=== PATIENT | female | born 1965 | race Caucasian/White ===

== ENCOUNTER 2016-10-06 20:08 | Inpatient (IN) | payer OTHER ==
[~2016-10-06] VITALS: Ht 170.2 cm; Wt 99.8 kg
[~2016-10-06 20:08] MED LIST: ESTRADIOL2 M1 PO; GEMFIBROZIL600 M1; PEPCID; WATER PILL?; [UNRECOGNIZED DRUG - OTHER]; [UNRECOGNIZED DRUG - REMARK]
[2016-10-06 20:25] VITALS: BP 126/74
--- NOTE | 2016-10-06 21:13 | NUR ---
PT TAKEN TO BED 4
--- NOTE | 2016-10-06 21:13 | NUR ---
PATIENT PRESENTS TO ED WITH AB PAIN X 4 HOURS AGO RADIATES TO THE BACK PT DENIES ANY FALL.; SKIN IS PINK/WARM/DRY; AAOX4 WITH EVEN AND STEADY GAIT; LUNGS CLEAR BL; HR EVEN AND REGULAR; PT DENIES ANY FEVER, CP, SOB, OR COUGH AT THIS TIME; PATIENT STATES PAIN OF 10/10 AT THIS TIME; VSS; PATIENT POSITIONED FOR COMFORT; HOB ELEVATED; BEDRAILS UP X2; BED DOWN. ER MD MADE AWARE OF PT STATUS.
[2016-10-06] MEDS ORDERED: NACL 0.9% 1,000 ML IV ONE (21:46)
[2016-10-06] MEDS ORDERED: MORPHINE SULFATE 4 MG/ML SYR IVP ONE (21:50)
[2016-10-06] MEDS ORDERED: ONDANSETRON 4 MG/2 ML VIAL IVP ONE (21:50)
[2016-10-07] MEDS ORDERED: KETOROLAC 30 MG/ML VIAL IVP ONE
[2016-10-07] MEDS ORDERED: MORPHINE SULFATE 4 MG/ML SYR IVP ONE
[2016-10-07] MEDS ORDERED: CYMBALTA60 MG PO (00:14)
[2016-10-07] MEDS ORDERED: DESYREL50 MG PO (00:14)
[2016-10-07] MEDS ORDERED: BIAXIN500 MG PO (00:14)
--- NOTE | 2016-10-07 00:46 | NUR ---
Pt report given to YOSEPH LOWE . Transfer of care at this time.
--- NOTE | 2016-10-07 00:46 | NUR ---
Patient will be admitted to care of DR RAYA. Admited to MS 119B. Will go to room 119B . Belongings list completed. Report to YOSEPH LOWE .
--- NOTE | 2016-10-07 01:10 | NUR ---
PATIENT ARRIVED TO UNIT VIA WHEELCHAIR. PATIENT WAS ABLE TO AMBULATE TO BED, STEADY GAIT, ON ROOM AIR, NO SOB OR SIGN OF DISTRESS AT THIS TIME. AAOX4, DENIES PAIN, PATIENT SKIN IS INTACT, IV TO RIGHT HAND PATENT AND INTACT. ORIENTED PATIENT TO ROOM AND CALL LIGHT, SAFETY MEASURES CHECKED, CALL LIGHT WITHIN REACH. WILL CONTINUE TO MONITOR
[2016-10-07 01:15] VITALS: BP 113/66
--- NOTE | 2016-10-07 03:00 | NUR ---
PATIENT RESTING IN BED, NO SOB OR SIGN OF DISTRESS, CALL LIGHT WITHIN REACH. WILL CONTINUE TO MONITOR.
[2016-10-07] MEDS ORDERED: MORPHINE SULFATE 2 MG/ML SYR IVP PRN (03:25)
--- NOTE | 2016-10-07 03:30 | NUR ---
PATIENT C/O ABDOMINAL PAIN 10/03, PAGED DR RAYA, SPOKE WITH ZARI RAYA RECEIVED ORDERS FOR PAIN MEDS NORCO 5/325 TABLET PO PRN Q4 HOURS FOR MODERATE PAIN AND MORPHINE 2 MG IV PRN Q4 FOR SEVERE PAIN. WILL F/U WITH ORDERS.
[2016-10-07] MEDS ORDERED: LORazepam 2 MG/ML VIAL IVP PRN (03:35)
[2016-10-07] MEDS ORDERED: ACETAMINOPHEN 325 MG TAB PO PRN (03:35)
[2016-10-07] MEDS ORDERED: ONDANSETRON 4 MG/2 ML VIAL IVP PRN (03:35)
[2016-10-07] MEDS: HYDROcodone/APAP 5/325 MG 1 TAB TAB PO PRN ×2 (04:20→21:23)
[2016-10-07] MEDS: DEXT 5% /NACL 0.9% 1,000 ML IV SCH ×3 (04:22→23:55)
--- NOTE | 2016-10-07 06:00 | NUR ---
PATIENT SLEEPING, NO SOB OR SIGN OF DISTRESS AT THIS TIME, CALL LIGHT WITHIN REACH. WILL CONTINUE TO MONITOR.
--- NOTE | 2016-10-07 07:14 | NUR ---
RECEIVED PT AWAKE AND LYING ON BED WITH NO S/S OF RESPIRATORY DISTRESS OR DISCOMFORT, AAOX4, ABLE TO AMBULATE FROM BED TO RESTROOM. WITH IV ACCESS ON RIGHT HAND 22G INFUSING FLUIDS WELL. SKIN IS INTACT. NO COMPLAINTS OF PAIN AT THIS TIME. DISCUSSED PLAN OF CARE, PT VERBALIZED UNDERSTANDING. CALL LIGHT WITHIN REACH, WILL CONTINUE TO MONITOR.
--- NOTE | 2016-10-07 07:41 | NUR ---
ENDORSED PATIENT TO DAY RN AT BEDSIDE, PATIENT IN STABLE CONDITION
--- NOTE | 2016-10-07 07:59 | NUR ---
PATIENT HAS BEEN SCREENED AND CATEGORIZED MODERATE NUTRITION RISK. PATIENT WILL BE SEEN WITHIN 3-5 DAYS OF ADMISSION. 10/09/16-10/11/[address]
[2016-10-07 08:00] VITALS: BP 92/57
[2016-10-07] MEDS: GEMFIBROZIL 600 MG TAB PO SCH ×2 (08:23→21:23)
[2016-10-07] MEDS: CLARITHROMYCIN 500 MG TAB PO SCH ×2 (08:24→21:24)
[2016-10-07] MEDS: DULoxetine 30 MG CAPDR PO SCH (08:24)
--- NOTE | 2016-10-07 08:29 | NUR ---
DUE MEDS GIVEN, PT TOLERATED WELL. PT COMPLAINED OF NAUSEA, ZOFRAN GIVEN ORDERED. WILL CONTINUE TO MONITOR.
--- NOTE | 2016-10-07 10:08 | NUR ---
DR RAYA AND RELATIVES AT BEDSIDE
--- NOTE | 2016-10-07 10:34 | NUR ---
CM NOTE PER POWER LINE LINEMAN AGUSTINA EXT [phone], REVIEWS SHOULD BE SENT TO [facility]. INITIAL REVIEW SENT TO [facility] FAX# [phone] PH# [phone] ATTN: FRANCIE SUAREZ PH# [phone]
--- NOTE | 2016-10-07 12:57 | NUR ---
PT ASLEEP ON BED NO S/S OF RESPIRATORY DISTRESS. PT COMPLAINS OF HEADACHE, COLD COMPRESS APPLIED. ALL NEEDS ATTENDED. CALL LIGHT WITHIN REACH, WILL CONTINUE TO MONITOR
--- NOTE | 2016-10-07 14:42 | NUR ---
PT WATCHING TV, COMPLAINED OF HEADACHE, TYLENOL GIVEN ORDERED. WILL CONTINUE TO MONITOR.
[2016-10-07 16:00] VITALS: BP 95/62
--- NOTE | 2016-10-07 16:09 | NUR ---
NOTIFIED DR. PETERS RE: CONSULT, WILL DROP BY TODAY TO SEE PT. WILL CARRY OUT NEW ORDERS
--- NOTE | 2016-10-07 17:29 | NUR ---
DR PETERS AT NURSES' STATION
--- NOTE | 2016-10-07 18:29 | NUR ---
NOTIFIED DR. GRIJALVA RE: CONSULT, WILL SEE PT TOMORROW
--- NOTE | 2016-10-07 19:28 | NUR ---
ENDORSED PT TO CHRISSY HAMEED IN STABLE CONDITION FOR CONTINUITY OF CARE.
--- NOTE | 2016-10-07 19:30 | NUR ---
RECEIVED REPORT FROM DAY RN AT BEDSIDE, PATIENT RESTING IN BED, AAOX4 ON ROOM AIR, NO SOB OR SIGN OF DISTRESS AT THIS TIME, PATIENT HAS IV TO RIGHT HAND PATENT AND INTACT WITH IVF INFUSING WELL. PATIENT C/O HEADACHE, WILL ADMINISTER MEDICATION PER MD ORDER. SKIN IS INTACT, SAFETY MEASURES CHECKED, DISCUSSED PLAN OF CARE WITH PATIENT, PATIENT VERBALIZED UNDERSTANDING, CALL LIGHT WITHIN REACH. WILL CONTINUE TO MONITOR.
[2016-10-07] MEDS ORDERED: ESTRADIOL2 M1 PO SCH (21:00)
[2016-10-07] MEDS: traZODone 50 MG TAB PO SCH (21:23)
[2016-10-07] MEDS: ESTRADIOL 1 MG TAB PO SCH (21:23)
--- NOTE | 2016-10-07 21:29 | NUR ---
PM MEDS ADMINISTERED, PATIENT TOLERATED WELL, CALL LIGHT WITHIN REACH. WILL CONTINUE TO MONITOR
[2016-10-08] VITALS: BP 99/68
--- NOTE | 2016-10-08 00:15 | NUR ---
VITAL SIGNS STABLE, NO SOB OR SIGN OF DISTRESS, PATIENT SLEEPING, CALL LIGHT WITHIN REACH. WILL CONTINUE TO MONITOR.
--- NOTE | 2016-10-08 02:05 | NUR ---
PATIENT SLEEPING COMFORTABLE, NO SOB OR SIGN OF DISTRESS AT THIS TIME, CALL LIGHT WITHIN REACH WILL CONTINUE TO MONITOR.
--- NOTE | 2016-10-08 03:30 | NUR ---
PATIENT SLEEPING, NO SOB OR SIGN OF DISTRESS AT THIS TIME, CALL LIGHT WITHIN REACH. WILL CONTINUE TO MONITOR.
--- NOTE | 2016-10-08 05:00 | NUR ---
PATIENT SLEEPING, EASILY AWOKEN, PATIENT SIGNED CONSENT FOR ANESTHESIA, PATIENT AWARE OF TIME FOR SURGERY, CALL LIGHT WITHIN REACH. WILL CONTINUE TO MONITOR.
--- NOTE | 2016-10-08 07:23 | NUR ---
ENDORSED PATIENT TO DAY RN AT BEDSIDE, PATIENT IN STABLE CONDITION
--- NOTE | 2016-10-08 07:23 | NUR ---
RECEIVED REPORT FROM NIGHT NURSE. PT IS AAOX4, ON ROOM AIR IV TO RIGHT HAND 22G INFUSING WELL. SKIN INTACT. INITIAL ASSESSMENT COMPLETED. REVIEWED PLAN OF CARE WITH PT. PT VERBALIZED UNDERSTANDING. ALL SAFETY PRECAUTIONS MET. ALL NEEDS MET. CALL LIGHT WITHIN REACH. WILL CONTINUE TO MONITOR.
[2016-10-08 08:00] VITALS: BP 105/78
[2016-10-08] MEDS: BUPIVACAINE-MPF/EPI 0.25% 30 ML VIAL INJ ONE ×2 (08:11→12:15)
[2016-10-08] MEDS ORDERED: ceFAZolin 1,000 MG VIAL ONE (08:11)
--- NOTE | 2016-10-08 08:20 | NUR ---
PT LEFT UNIT TO OR IN STABLE CONDITION.
[2016-10-08] MEDS ORDERED: KETOROLAC 30 MG/ML VIAL ONE (08:58)
[2016-10-08] MEDS ORDERED: GLYCOPYRROLATE 0.2 MG/ML VIAL ONE (08:58)
[2016-10-08] MEDS ORDERED: ROCURONIUM 50 MG/5 ML VIAL IV ONE (08:58)
[2016-10-08] MEDS ORDERED: PROPOFOL 200 MG/20 ML VIAL IV ONE (08:58)
[2016-10-08] MEDS ORDERED: DEXAMETHASONE 4 MG/ML VIAL ONE (08:58)
[2016-10-08] MEDS ORDERED: ONDANSETRON 4 MG/2 ML VIAL ONE (08:58)
[2016-10-08] MEDS ORDERED: PHENYLEPHRINE 10 MG/ML VIAL ONE (08:58)
[2016-10-08] MEDS ORDERED: DESFLURANE 240 ML BTL INH ONE (08:58)
[2016-10-08] MEDS: GEMFIBROZIL 600 MG TAB PO SCH ×2 (09:00→21:32)
[2016-10-08] MEDS: DULoxetine 30 MG CAPDR PO SCH (09:00)
[2016-10-08] MEDS: CLARITHROMYCIN 500 MG TAB PO SCH ×2 (09:00→21:00)
[2016-10-08] MEDS ORDERED: fentaNYL 0.05 MG/ML VIAL ONE (09:04)
[2016-10-08] MEDS ORDERED: HYDROmorphone PFS 2 MG/ML SYR ONE (09:04)
[2016-10-08] MEDS ORDERED: HYDROmorphone 1 MG/ML AMP IVP PRN (09:30)
[2016-10-08] MEDS ORDERED: ONDANSETRON 4 MG/2 ML VIAL IVP PRN (09:30)
[2016-10-08] MEDS: HYDROmorphone PFS 2 MG/ML SYR ONE ×5 (12:20→12:50)
[2016-10-08] MEDS: MORPHINE SULFATE 4 MG/ML SYR ONE ×3 (12:58→13:08)
[2016-10-08] MEDS ORDERED: MORPHINE SULFATE 2 MG/ML SYR IVP PRN (13:10)
--- NOTE | 2016-10-08 13:30 | NUR ---
PT RETUNED FROM OR. ABD DRESSING DRY AND INTACT. WILI DRAIN TO RIGHT ABD. VS: TEMP 96.9, BP 111/58, HR 71, PULSE OX 94 % ON O2 2L VIA NC. ALL NEEDS MET. CALL LIGHT WITHIN REACH. WILL CONTINUE TO MONITOR.
--- NOTE | 2016-10-08 13:45 | NUR ---
VS: TEMP 97.1, BP 111/58, HR 65, PULSE OX 95 % ON O2 2L VIA NC.
--- NOTE | 2016-10-08 14:00 | NUR ---
VS: 97.7, BP 120/70, HR 81, PULSE OX 93 ON O2 2L VIA NC. ALL NEEDS MET. AT BEDSIDE.
--- NOTE | 2016-10-08 14:15 | NUR ---
VS: TEMP 97.4, BP 117/62, HR 66, PULSE OX 96% ON O2 2L VIA NC.. WILL CONTINUE TO MONITOR.
--- NOTE | 2016-10-08 14:45 | NUR ---
VS: TEMP 97.9, BP 95/57, HR 67, PULSE OX 97 ON O2 2L VIA NC. ALL NEEDS MET. CALL LIGHT WITHIN REACH.
--- NOTE | 2016-10-08 15:15 | NUR ---
VS: TEMP 97.3, BP 116/67, HR 69, PULSE OX 95% ON ROOM AIR. ALL NEEDS MET. CALL LIGHT WITHIN REACH. WILL CONTINUE TO MONITOR.
[2016-10-08] MEDS: DEXT 5% /NACL 0.9% 1,000 ML IV SCH ×2 (15:45→19:35)
--- NOTE | 2016-10-08 15:50 | NUR ---
PT CURRENTLY RESTING IN BED. AT BEDSIDE. ALL NEEDS MET. CALL LIGHT WITHIN REACH. WILL CONTINUE TO MONITOR.
[2016-10-08 16:00] VITALS: BP 123/71
[2016-10-08] MEDS: MORPHINE SULFATE 4 MG/ML SYR IVP PRN (17:43)
--- NOTE | 2016-10-08 18:10 | NUR ---
PT CURRENTLY IN BED, FAMILY AT BEDSIDE.ALL NEEDS MET. CALL LIGHT WITHIN REACH. WILL CONTINUE TO MONITOR.
--- NOTE | 2016-10-08 19:34 | NUR ---
ENDORSED PLAN OF CARE TO NIGHT NURSE, PT IN STABLE CONDITION.
--- NOTE | 2016-10-08 19:35 | NUR ---
RECEIVED REPORT FROM MORNING SHIFT NURSE, PT IS AAOX4, ABLE TO FOLLOW COMMANDS AND MAKE NEEDS KNOW. NO SOB/DISTRESS NOTED, BREATHING EVEN AND UNLABORED, CLEAR LUNG SOUNDS, ON RA. DENIES CHEST PAIN. SURGICAL WOUND TO ABD, WILI DRAIN WITH DARK RED DRAINAGE, COVERED WITH DRESSING, OOZING NOTED AROUND THE WILI DRAIN. C/O SEVERE PAIN TO ABD AREA, 10/10, EDUCATED AND WILL MEDICATED. AFEBRILE, SKIN IS WARM AND DRY TO TOUCH, IV SITE TO LEFT HAND 22GA, RUNNING D5 NS. AMBULATORY WITH ASSIST, SCD'S ON BLE. VSS. EXPLAINED PLANE OF CARE TO PATIENT, SAFETY MEASURES MAINTAINED. CALL LIGHT WITHIN REACH, WILL CONTINUE TO MONITOR.
--- NOTE | 2016-10-08 21:00 | NUR ---
SCHEDULED MEDICATION GIVEN, PT TOLERATED WELL. C/O SEVERE PAIN TO ABD WOUND SITE, EDUCATED AND MEDICATED.
[2016-10-08] MEDS: ESTRADIOL 1 MG TAB PO SCH (21:31)
[2016-10-08] MEDS: traZODone 50 MG TAB PO SCH (21:31)
[2016-10-08] MEDS: MORPHINE SULFATE 2 MG/ML SYR IVP PRN (21:32)
[2016-10-09] VITALS: BP 138/81
--- NOTE | 2016-10-09 | NUR ---
PT IS ASLEEP IN BED, NO CHANGE OF CONDITION AT THIS TIME. VSS.
[2016-10-09] MEDS: MORPHINE SULFATE 4 MG/ML SYR IVP PRN ×2 (01:57→14:33)
[2016-10-09] MEDS: DEXT 5% /NACL 0.9% 1,000 ML IV SCH ×3 (01:57→23:13)
--- NOTE | 2016-10-09 02:00 | NUR ---
PT C/O PAIN TO ABD WOUND SITE, RESTLESSNESS, EDUCATED AND MEDICATED.
--- NOTE | 2016-10-09 06:00 | NUR ---
EMPTIED WILI DRAIN WITH 30ML RED BLOODY OUTPUT.
--- NOTE | 2016-10-09 07:05 | NUR ---
REPORT GIVEN TO MORNING SHIFT NURSE AT BEDSIDE FOR CONTINUE OF CARE.
--- NOTE | 2016-10-09 07:05 | NUR ---
RECEIVED REPORT FROM NIGHT NURSE. PT IS AAOX4, ON ROOM AIR IV TO LEFT FA 22G INFUSING WELL. S/P OPEN SHABNAM WITH ABD DRESSING DRY AND INTACT WITH WILI DRAIN. INITIAL ASSESSMENT COMPLETED. REVIEWED PLAN OF CARE WITH PT. PT VERBALIZED UNDERSTANDING. ALL SAFETY PRECAUTIONS MET. ALL NEEDS MET. CALL LIGHT WITHIN REACH. WILL CONTINUE TO MONITOR.
[2016-10-09 08:00] VITALS: BP 115/65
[2016-10-09] MEDS: GEMFIBROZIL 600 MG TAB PO SCH ×2 (09:06→20:26)
[2016-10-09] MEDS: DULoxetine 30 MG CAPDR PO SCH (09:07)
[2016-10-09] MEDS: CLARITHROMYCIN 500 MG TAB PO SCH ×2 (09:07→20:26)
--- NOTE | 2016-10-09 09:09 | NUR ---
DUE MEDICATIONS GIVEN. PT TOLERATED WELL. ALL NEEDS MET. CALL LIGHT WITHIN REACH. WILL CONTINUE TO MONITOR.
--- NOTE | 2016-10-09 11:14 | NUR ---
PT CURRENTLY RESTING IN BED. AT BEDSIDE. ALL NEEDS MET. CALL LIGHT WITHIN REACH. WILL CONTINUE TO MONITOR.
--- NOTE | 2016-10-09 13:45 | NUR ---
PT CURRENTLY RESTING IN BED. ASSISTED PT TO BEDPAN, ALL NEEDS MET. CALL LIGHT WITHIN REACH. WILL CONTINUE TO MONITOR.
[2016-10-09 15:56] VITALS: BP 133/71
--- NOTE | 2016-10-09 16:05 | NUR ---
NO S/S OF DISTRESS NOTED. ALL NEEDS MET. CALL LIGHT WITHIN REACH.
--- NOTE | 2016-10-09 19:20 | NUR ---
ENDORSED PLAN OF CARE TO NIGHT NURSE, PT IN STABLE CONDITION.
--- NOTE | 2016-10-09 19:21 | NUR ---
RECEIVED REPORT FROM DAY SHIFT NURSE. PT IS AAOX4, RESTING, DENIES PAIN AT THIS TIME. ON ROOM AIR, WITH NO S/S OF RESPIRATORY DISTRESS/DISCOMFORT NOTED. IV SITE IS PATENT AND INTACT. PLAN OF CARE DISCUSSED, VERBALIZED UNDERSTANDING. SAFETY MEASURES CHECKED, CALL LIGHT WITHIN REACH. WILL CONTINUE TO MONITOR.
[2016-10-09] MEDS: traZODone 50 MG TAB PO SCH (20:27)
[2016-10-09] MEDS: ESTRADIOL 1 MG TAB PO SCH (20:27)
--- NOTE | 2016-10-09 20:28 | NUR ---
DUE MEDS GIVEN. PROVIDED DRUG INFO. BENEFITS AND S/E. PT TOLERATED WELL.
--- NOTE | 2016-10-09 20:29 | NUR ---
DR. MONTANO AT BEDSIDE.
[2016-10-10] VITALS: BP 133/69
--- NOTE | 2016-10-10 | NUR ---
EYES CLOSED, APPEARS TO BE RESTING QUIETLY, BREATHING EVEN AND UNLABORED, EASILY AROUSABLE BY NAME. V/S CHECKED AND STABLE. CALL LIGHT WITHIN REACH.
--- NOTE | 2016-10-10 01:59 | NUR ---
EYES CLOSED, APPEARS TO BE RESTING QUIETLY, BREATHING EVEN AND UNLABORED, NO SOB. CALL LIGHT WITHIN REACH.
--- NOTE | 2016-10-10 04:58 | NUR ---
EYES CLOSED, APPEARS TO BE RESTING QUIETLY, NO SIGNS OF DISTRESS. NO SOB, NO S/S OF RESPIRATORY DISTRESS/DISCOMFORT NOTED. CALL LIGHT WITHIN REACH.
--- NOTE | 2016-10-10 07:22 | NUR ---
ENDORSED PT TO DAY SHIFT NURSE FOR CONTINUITY OF CARE. PT IS IN STABLE CONDITION.
--- NOTE | 2016-10-10 07:23 | NUR ---
ALERT AND ORIENTED X4, NO SIGNS OF ACUTE DISTRESS, BREATHING EVENLY AND UNLABORED ON ROOM AIR, SKIN WARM, DRY WITH ABDOMINAL INCISION COVERED WITH DRESSING FROM LAP SHABNAM 10/09/16, WILI DRAIN IN PLACE, ABDOMEN SOFT, BOWEL SOUNDS PRESENT IN ALL 4 QUADRANTS, BOWEL AND BLADDER CONTINENCE, AMBULATORY WITH STANDBY ASSIST, PATIENT COMPLAINT OF PAIN 04/04, WILL MEDICATE AND RE-ASSESS. IV LEFT FOREARM PATENT WITH NO REDNESS, BED IN LOW POSITION WITH BILATERAL HALF SIDE RAILS UP, CALL LIGHT WITHIN REACH.
[2016-10-10 08:00] VITALS: BP 132/76
[2016-10-10] MEDS: MORPHINE SULFATE 2 MG/ML SYR IVP PRN (08:28)
[2016-10-10] MEDS: GEMFIBROZIL 600 MG TAB PO SCH (08:33)
[2016-10-10] MEDS: DULoxetine 30 MG CAPDR PO SCH (08:34)
[2016-10-10] MEDS: CLARITHROMYCIN 500 MG TAB PO SCH (08:34)
[2016-10-10] MEDS: DEXT 5% /NACL 0.9% 1,000 ML IV SCH ×2 (10:08→11:35)
--- NOTE | 2016-10-10 15:30 | NUR ---
PT ALERT AND RESPONSIVE, NO SIGNS OF ACUTE DISTRESS. ENDORSED TO ASSIGNED AM NURSE FOR CONTINUITY OF CARE.
[2016-10-10 16:00] VITALS: BP 121/78
[2016-10-10] MEDS ORDERED: POTASSIUM CHLORIDE 10 MEQ TABER PO SCH (16:45)
--- NOTE | 2016-10-10 17:30 | NUR ---
DR. PETERS CAME, SEEN PT., AND REMOVED WILI DRAIN. DR. PETERS ORDERED TO COVERED WILI SITE WITH 4X4 DRY DRESSING. TOLERATED WELL. NO C/O PAIN. NO SOB, NOTED.
--- NOTE | 2016-10-10 18:30 | NUR ---
ZARI MORALES CAME. SEEN PT. AND CHECKED PT. CHART.
[2016-10-10] MEDS ORDERED: LEVAQUIN750 MG PO (19:09)
[2016-10-10] MEDS ORDERED: ACETAMINOPHEN-H1 TA3 PO (19:09)
[2016-10-10] MEDS ORDERED: FLAGYL250 MG PO (19:09)
--- NOTE | 2016-10-10 19:40 | NUR ---
ENDORSED TO MERCEDES CENTENO IN STABLE CONDITION.
--- NOTE | 2016-10-10 19:45 | NUR ---
RECEIVED PT FROM FOZIA SMITH PT IS AAOX4 AMBULATORY S/P LAP SHABNAM. ALL DISCHARGE ORDER ALREADY COMPLETE BY FOZIA Marcelino ALREADY TOOK A PICTURE AND DC INSTRUCTION ALREADY GIVEN AN SIGNED PAPER WORK RELATIVE AT BED SIDE , IV SITE REMOVED . DENIES ANY PAIN OR DISCOMFORT AT THIS TIME
--- NOTE | 2016-10-10 20:20 | NUR ---
PT IS GOING HOME [employer] PROF[employer] TAKE PT VIA WHEELCHAIR TO THE [employer] PARKING LOT AND PT RELATIVE IS WAITING FOR PT IN A PRIVATE VEHICLE. VSS PT SEEM STABLE AND VERBALIZED TO BE HAPPY TO COME BACK HOME NOW.
--- NOTE | 2016-10-11 08:40 | NUR ---
FAXED RETRO REVIEW, DISCHARGE SUMMARY AND OPERATIVE REPORT TO [phone] PHONE HARJIT [phone]
== END 2016-10-10 20:20 | disposition home or self-care (01) | DRG 853 ==
LOC: MED 20:08 → MTU 10-07 00:45
PROVIDERS: ADMIT Internal Medicine Cardiovascular Disease; ATTEND Internal Medicine Cardiovascular Disease
PROC: 0FJ44ZZ Inspection of Gallbladder, Percutaneous Endoscopic Approach (ICD-10-PCS; 2016-10-08)
PROC: BF131ZZ Fluoroscopy of Gallbladder and Bile Ducts using Low Osmolar Contrast (ICD-10-PCS; 2016-10-08)
PROC: 0FT40ZZ Resection of Gallbladder, Open Approach (ICD-10-PCS; principal; 2016-10-08 08:30)
DX: A41.9 Sepsis, unspecified organism (principal); E43 Unspecified severe protein-calorie malnutrition; E87.0 Hyperosmolality and hypernatremia; K80.62 Calculus of gallbladder and bile duct with acute cholecystitis without obstruction; D64.9 Anemia, unspecified; E83.52 Hypercalcemia; E87.6 Hypokalemia; H54.42 Blindness, left eye, normal vision right eye; R73.9 Hyperglycemia, unspecified; R74.0 Nonspecific elevation of levels of transaminase and lactic acid dehydrogenase [LDH]; J32.9 Chronic sinusitis, unspecified; Z85.41 Personal history of malignant neoplasm of cervix uteri; Z90.49 Acquired absence of other specified parts of digestive tract; Z90.710 Acquired absence of both cervix and uterus; Z79.899 Other long term (current) drug therapy; Z68.34 Body mass index [BMI] 34.0-34.9, adult